=== PATIENT | female | born 1970 | race Caucasian/White ===

== ENCOUNTER 2022-07-19 14:30 | Emergency (ER) | payer OTHER ==
[~2022-07-19] VITALS: Ht 170 cm; Wt 79.3 kg
[2022-07-19 14:42] VITALS: BP 148/99
--- NOTE | 2022-07-19 14:56 | ED Upper Extremity ---
General Chief Complaint: Upper Extremity Stated Complaint: LT PINKY FINGER DISLOCATED AND BROKEN Source: patient Exam Limitations: no limitations History of Present Illness Date Seen by Provider: Jul 19, 2022 Time Seen by Provider: 14:45 Initial Comments 52-year-old female presents to the ED with an injury to the left fifth digit. States that on Friday at 4 PM she jammed it against a cabinet, states that on Friday the end of her pinky was bent backwards. Her pulled on it and reduced it for her. She was seen at [facility], and placed in a finger splint. She then went to [facility] today and had an x-ray. They told her to come to the ER because it was broken and dislocated. Patient complains of pain at the distal interphalangeal joint, she is able to bend at the proximal interphalangeal joint, but not the distal interphalangeal joint. Swelling noted around the distal interphalangeal joint. Patient reports she took ibuprofen shortly before arrival. Past medical history includes hypertension, she takes lisinopril and amitriptyline. Allergies and Home Medications Patient Home Medication List Home Medication List Reviewed: Yes Review of Systems Constitutional: no symptoms reported Respiratory: no symptoms reported Cardiovascular: no symptoms reported Musculoskeletal: joint swelling, other (Injury to left fifth digit) Physical Exam Vital Signs Vital Signs - First Documented 07/19/22 14:42 Temp 35.6 Pulse 103 Resp 16 B/P (MAP) 148/99 (115) Pulse Ox 100 O2 Delivery Room Air Capillary Refill : Height, Weight, BMI Height: '" Weight: lbs. oz. kg; BMI Method: General Appearance: WD/WN, no apparent distress Neck: supple, normal inspection Cardiovascular: regular rate, rhythm, no edema, no gallop, no JVD, no murmur Respiratory: lungs clear, normal breath sounds, no respiratory distress, no accessory muscle use Hand: Left (Fifth digit, cap refill less than 2 seconds, sensation intact distally, finger is warm to touch), limited ROM (5th digit), soft tissue tenderness (fifth digit), swelling (fifth digit) Neurologic/Psychiatric: alert, normal mood/affect Skin: normal color, warm/dry Procedures/Interventions Splinting and Joint Reduction : Location: Distal interphalangeal joint of the fifth digit of left hand Pre-Proc Neuro Vasc Exam: normal Post-Proc Neuro Vasc Exam: normal Pre-Procedure NV Exam: Yes post joint reduction film: joint reduced Progress Digital block of the fifth digit with 2 mls of 1% lidocaine. Distal interphalangeal joint reduced. Finger placed in splint. Good reduction noted on follow-up x-ray of finger, mild posterior subluxation. No evidence of neurovascular compromise. Progress/Results/Core Measures Results/Orders My Orders Vital Signs/I&O Progress Progress Note : Time: 14:57 Progress Note Patient seen and evaluated, resting comfortably in recliner, no acute distress. Based on exam and symptoms, will obtain an x-ray of left hand. 1540 x-ray reviewed. Dislocation of distal phalanx of fifth digit with possible tiny fracture. Joint reduced, splint placed, see procedure note. Post reduction x-ray ordered. 1550 post reduction x-ray reviewed by me, joint is reduced, mild posterior subluxation noted. Results discussed with patient. Patient given discharge instructions and return precautions. Diagnostic Imaging Diagonstic Imaging: Xray Plain Films/CT/US/NM/MRI: hand Comments [facility], [place] NAME: CHRISTY GAYTAN [facility] REC#: [id number] PT STATUS: REG ER : 1970 PHYSICIAN: ROS MARINELLI APRN ADMIT DATE: 07/19/22/ER Signed Date of Exam:07/19/22 HAND, LEFT, 3 VIEWS INDICATION: Injury to left hand and fingers. TIME OF EXAM: 3:02 PM. EXAMINATION: Three views of the left hand were obtained. FINDINGS: There is a dorsal dislocation at the level of the DIP joint of the 5th finger. The distal phalanx is dislocated dorsally in relation to the middle phalanx. There is a tiny osseous density adjacent to the distal aspect of the middle phalanx which may represent a tiny fracture fragment. No other fracture is seen. Remaining phalanges are intact. Metacarpals are intact. IMPRESSION: Dorsal dislocation of the distal phalanx of the 5th finger, as described, with probable tiny fracture. Dictated by: Dictated on workstation # [id number] Dict: 07/19/22 1517 Trans: 07/19/22 1532 [facility] [id number] Interpreted by: CARMELO DOYLE MD Electronically signed by: CARMELO DOYLE MD 07/19/22 1532 Diagonstic Imaging: Xray Plain Films/CT/US/NM/MRI: other (finger) Comments [facility], [place] NAME: CHRISTY GAYTAN [facility] REC#: [id number] PT STATUS: REG ER : 1970 PHYSICIAN: ROS MARINELLI APRN ADMIT DATE: 07/19/22/ER Signed Date of Exam:07/19/22 FINGER(S) INDICATION: Post reduction, pain. COMPARISON: Imaging from the same date. TECHNIQUE: Three radiographs centered upon the left hand fifth digit dated 07/19/2022. FINDINGS: Interval reduction of previously noted posteriorly dislocated fifth DIP joint. Alignment appears improved, though slight posterior subluxation at this location remains. Tiny calcific density is noted along the volar aspect of the fifth DIP joint. No new fracture or dislocation. Splint is in place. IMPRESSION: Interval reduction of previously noted dislocated fifth DIP joint, with minimal persisting posterior subluxation remaining. Tiny calcification along the volar aspect of the fifth DIP joint likely relates to a very tiny fracture fragment. This is similar to the recent examination. Dictated by: Dictated on workstation # [id number] Dict: 07/19/22 1549 Trans: 07/19/22 1612 [id number] Interpreted by: OSMEL HERNANDEZ MD Electronically signed by: OSMEL HERNANDEZ MD 07/19/22 1612 Departure Impression Primary Impression: Dislocation closed, finger Qualified Codes: S63.259A - Unspecified dislocation of unspecified finger, initial encounter Disposition: 01 HOME, SELF-CARE Condition: Stable Departure-Patient Inst. Decision time for Depature: 15:51 Referrals: HANH CARDOSO MD (PCP) Primary Care Physician CAMILLA PACHECO MD Patient Instructions: Finger Dislocation (DC) Add. Discharge Instructions: Wear finger splint until you follow-up with orthopedics. Call orthopedics on Friday to schedule follow-up. You may take Tylenol or ibuprofen as needed for pain. Return for worsening pain, numbness or tingling in your finger, or any other new, concerning, or worsening symptoms. All discharge instructions reviewed with patient and/or family. Voiced understanding. ROS MARINELLI [employer]CHITECT[employer] ENGINEERING TEACHER Jul 19, 2022 14:56
--- NOTE | 2022-07-19 15:22 | Diagnostic Imaging Report ---
INDICATION: Injury to left hand and fingers. TIME OF EXAM: 3:02 PM. EXAMINATION: Three views of the left hand were obtained. FINDINGS: There is a dorsal dislocation at the level of the DIP joint of the 5th finger. The distal phalanx is dislocated dorsally in relation to the middle phalanx. There is a tiny osseous density adjacent to the distal aspect of the middle phalanx which may represent a tiny fracture fragment. No other fracture is seen. Remaining phalanges are intact. Metacarpals are intact. IMPRESSION: Dorsal dislocation of the distal phalanx of the 5th finger, as described, with probable tiny fracture. Dictated by: Dictated on workstation # [id number]
--- NOTE | 2022-07-19 15:57 | Diagnostic Imaging Report ---
INDICATION: Post reduction, pain. COMPARISON: Imaging from the same date. TECHNIQUE: Three radiographs centered upon the left hand fifth digit dated 07/19/2022. FINDINGS: Interval reduction of previously noted posteriorly dislocated fifth DIP joint. Alignment appears improved, though slight posterior subluxation at this location remains. Tiny calcific density is noted along the volar aspect of the fifth DIP joint. No new fracture or dislocation. Splint is in place. IMPRESSION: Interval reduction of previously noted dislocated fifth DIP joint, with minimal persisting posterior subluxation remaining. Tiny calcification along the volar aspect of the fifth DIP joint likely relates to a very tiny fracture fragment. This is similar to the recent examination. Dictated by: Dictated on workstation # [id number]
== END 2022-07-19 16:21 | disposition home or self-care (01) ==
LOC: EDUNIT# 14:30 → ER 14:35
DX: S63.297A Dislocation of distal interphalangeal joint of left little finger, initial encounter (principal); I10 Essential (primary) hypertension; Z79.899 Other long term (current) drug therapy; Z28.310 Unvaccinated for COVID-19; W23.0XXA Caught, crushed, jammed, or pinched between moving objects, initial encounter
CPT/HCPCS: 29130; 64450; 73130; 73140